=== PATIENT | male | born 1960 | race Caucasian/White ===

== ENCOUNTER → 2024-06-17 | Outpatient (CLI) | payer BC, SELFPAY ==
[2024-06-17 16:29] LABS: Uric Acid 6.9 mg/dL (3.7-9.2)
== END | disposition home or self-care (01) ==
LOC: COPL 14:29
PROVIDERS: PCP Internal Medicine; Referring Provider Internal Medicine; Visit Provider Internal Medicine
DX: M10.9 Gout, unspecified (principal)
CPT/HCPCS: 36415; 84550

== ENCOUNTER → 2024-10-23 | Outpatient (CLI) | payer BC, SELFPAY ==
--- NOTE | 2024-10-23 10:36 | XR_ITS ---
Examination: Sinus series 3 views TECHNIQUE: Lise Melendez lateral sinus series 3 views Exam date and time: October 23, 2024 1154 hours INDICATIONS: Sinus pressure and pain 6 months. FINDINGS: Prominent opacity in the frontal, ethmoid, maxillary antral and sphenoid air cells No fluid levels No retention cysts IMPRESSION: Significant chronic pansinusitis
== END | disposition home or self-care (01) ==
PROVIDERS: PCP Internal Medicine; Referring Provider Internal Medicine; Visit Provider Internal Medicine
DX: J32.4 Chronic pansinusitis (principal)
CPT/HCPCS: 70220

== ENCOUNTER → 2025-02-11 | Outpatient (CLI) | payer BC, SELFPAY ==
--- NOTE | 2025-02-11 09:30 | XR_ITS ---
Examination: MRI lumbar spine without contrast Date and time of exam: February 11, 2025 1104 hours INDICATIONS: Intermittent sharp lower back pain beginning in the 1980s Technique: Multiple MRI axial and sagittal sections lumbar spine. Sagittal T2-weighted images, TR 3500, TE 118 T1 weighted transverse sections, TR 688 T8.5, T2-weighted sagittal sections T1 weighted sagittal sections TR 621, TE 30 T2 axial sections, TR 4, 190, TE 84. Findings: Adequate alignment lumbar vertebral bodies on the lateral view Moderate disc narrowing L4-L5, moderate to advanced disc narrowing L5-S1 No spondylolisthesis No lumbar fracture L5-S1 3 mm central lumbar disc bulge contiguous with the right and left S1 nerve roots L4-L5 5 mm central lumbar disc bulge L3-L4 small foraminal disc bulges but no ganglionic compression L2-L3 no disc protrusion L1-L2 no disc protrusion IMPRESSION: L5-S1 3 mm central lumbar disc bulge contiguous with the right and left S1 nerve roots L4-L5 5 mm central lumbar disc bulge
== END | disposition home or self-care (01) ==
LOC: SMRI 09:25
PROVIDERS: PCP Internal Medicine; Referring Provider Internal Medicine; Visit Provider Internal Medicine
DX: M51.370 Other intervertebral disc degeneration, lumbosacral region with discogenic back pain only (principal); M51.360 Other intervertebral disc degeneration, lumbar region with discogenic back pain only
CPT/HCPCS: 72148

== ENCOUNTER → 2025-04-14 | Outpatient (CLI) | payer BC, SELFPAY ==
--- NOTE | 2025-04-14 14:29 | XR_ITS ---
Examination: PA lateral chest 2 views TECHNIQUE: Upright PA lateral chest 2 views Date and time: April 14, 2025, 1504 hours, comparison August 08, 2023 INDICATIONS: Dyspnea today. FINDINGS: Normal heart size. Lungs are clear. The osseous structures are intact IMPRESSION: No active disease
[2025-04-14 16:33] LABS: Basophils # (Auto) 0.1 Thou/mm3 (0.0-0.2); Basophils % (Auto) 1 % (0-2.5); Eosinophils # (Auto) 0.1 Thou/mm3 (0.0-0.5); Eosinophils % (Auto) 1 % (0-10); Hematocrit 44.9 % (41.0-53.0); Hemoglobin 16.1 g/dL (13.5-16.0); Immature Granulocytes Auto 0.01 Thou/mm3 (0.00-0.00); Lymphocytes # (Auto) 2.4 Thou/mm3 (1.0-4.8); Lymphocytes % (Auto) 32 % (10-50); Mean Corpuscular HGB Conc 35.9 g/dl (31.0-37.0); Mean Corpuscular Hemoglobin 35.2 pg (25.0-35.0); Mean Corpuscular Volume 98 fL (80-100); Monocytes # (Auto) 0.7 Thou/mm3 (0.0-0.8); Monocytes % (Auto) 10 % (0-12); Neutrophils # (Auto) 4.1 Thou/mm3 (1.8-7.7); Neutrophils % (Auto) 56 % (37-80); Nucleated Red Blood Cell # 0.00 Thou/mm3 (0.00-0.00); Nucleated Red Blood Cell % 0 /100 WBC (0); Platelet Count 204 Thou/mm3 (140-440); RDW Standard Deviation 43.8 fL (35.1-43.9); Red Blood Count 4.58 Miln/mm3 (4.50-5.90); White Blood Count 7.3 Thou/mm3 (3.8-10.6)
[2025-04-14 17:06] LABS: Glucose Estimated Average 103 mg/dL (80-131); Hemoglobin A1C 5.2 % Hgb (4.8-6.0)
[2025-04-14 17:07] LABS: B-Type Natriuretic Peptide 59 pg/mL (0-100); Prostate Specific Antigen 0.29 ng/mL (0-4.00)
[2025-04-14 17:10] LABS: Alanine Aminotransferase 39 U/L (10-49); Albumin, Serum 3.7 gm/dL (3.4-4.8); Albumin/Globulin Ratio 1.7 (1.2-2.2); Alkaline Phosphatase 95 U/L (46-116); Anion Gap 11 (7-16); Aspartate Amino Transferase 47 U/L (0-34); BUN/Creatinine Ratio 6 Ratio (12-20); Bilirubin,Total 0.7 mg/dL (0.3-1.2); Blood Urea Nitrogen 6 mg/dL (9-23); Calcium 8.9 mg/dL (8.3-10.6); Calcium (Corrected) 9.1 mg/dL (8.5-10.1); Carbon Dioxide 29.0 mMol/L (20.0-31.0); Cardiac Risk Estimate 2.0 RATIO (4.0-6.7); Chloride 101 mMol/L (98-107); Cholesterol 232 mg/dL (132-200); Creatinine (Component) 1.0 mg/dL (0.6-1.3); Free T4 (Free Thyroxine) 1.74 ng/dL (0.89-1.76); Globulin 2.2 gm/dL (2.3-3.5); Glucose 110 mg/dL (74-106); HDL Cholesterol 118 mg/dL (40-60); LDL Cholesterol,Calculated 80 mg/dL (0-130); Osmolality,Calculated 279 (275-295); Potassium 3.2 mMol/L (3.4-5.1); Sodium 141 mMol/L (136-145); Thyroid Stimulating Hormone 0.59 uIU/mL (0.55-4.78); Total Protein 5.9 gm/dL (5.7-8.2); Triglycerides 169 mg/dL (30-150); eGFR > 60 See Note
[2025-04-14 17:13] LABS: Vitamin B12 336 pg/mL (211-911); Vitamin D 25 Hydroxy Total 44.1 ng/mL (7.3-40.2)
== END | disposition home or self-care (01) ==
PROVIDERS: PCP Internal Medicine; Referring Provider Internal Medicine; Visit Provider Radiology Diagnostic Radiology
DX: R06.00 Dyspnea, unspecified (principal); Z00.00 Encounter for general adult medical examination without abnormal findings; N40.1 Benign prostatic hyperplasia with lower urinary tract symptoms; E55.9 Vitamin D deficiency, unspecified
CPT/HCPCS: 36415; 71046; 80053; 80061; 82306; 82607; 83036; 83880; 84153; 84439; 84443; 85025